=== PATIENT | male | born 1985 | race Caucasian/White ===

== ENCOUNTER 2021-07-29 21:48 | Emergency (ER) | payer SELFPAY ==
[~2021-07-29] VITALS: Ht 182.9 cm; Wt 83.5 kg
--- NOTE | 2021-07-29 21:55 | NUR ---
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 1 month ago. Pt is a very healthy and athletic young man with good color and appearance, afeb at 98.6, VSS, PE WNL. pt denies any serious pain,sob, n/v, discomfort. Pt here to get abx scribt for he feels as his sx are getting worst. Pt on vivek in pos of comfort waiting for EDMD.
--- NOTE | 2021-07-29 22:00 | NUR ---
EDMD at bedside to eval pt.
[2021-07-29] MEDS ORDERED: AMOX500T2 PO (22:28)
[2021-07-29] MEDS ORDERED: AMOX-430 PO (22:28)
[2021-07-29] MEDS ORDERED: PSEU120T57 PO (22:28)
[2021-07-29] MEDS ORDERED: FLUT16SP16 BNOSTRILS (22:28)
[2021-07-29] MEDS ORDERED: OXYM15MI4 NS (22:28)
--- NOTE | 2021-07-29 22:55 | NUR ---
Pt given dc instructions and med infor for 6 diff scripts the EDMD has writen for pt. Pt confirmed understanding of dc instuctions and med infor. Pt told to follow up with pmd within the week. VSS, PE wnl, no complaints of pain, sob, n/v, or discomfort. No s/sx of distress noted.
[2021-07-30 00:24] VITALS: BP 130/86
== END 2021-07-29 22:55 | disposition home or self-care (01) ==
LOC: ER 21:48
DX: J32.4 Chronic pansinusitis (principal)
CPT/HCPCS: A4663